=== PATIENT | female | born 1960 | race Caucasian/White ===

== ENCOUNTER 2018-02-10 10:00 | Inpatient (IN) | payer MEDICARE ==
[~2018-02-10 10:00] MED LIST: cefOXitin 2 GM Vial ONE
[2018-02-10] MEDS ORDERED: Celecoxib 200 MG Cap PO ONE (11:30)
[2018-02-10] MEDS ORDERED: Scopolamine 1.5 MG Transdermal Patch TOP SCH (11:30)
[2018-02-10] MEDS ORDERED: Acetaminophen 500 MG Tab PO ONE (11:30)
[2018-02-10] MEDS ORDERED: Gabapentin 300 MG Cap PO ONE (11:30)
[2018-02-10] MEDS: Dextrose 5%-Lactated Ringers 1,000 ML IV SCH ×2 (11:48→20:00)
[2018-02-10] MEDS ORDERED: cefOXitin 2 GM in Sodium Chloride 0.9% 50 ML IV ONE (12:00)
[2018-02-10] MEDS ORDERED: Albuterol/Ipratropium 3.0-0.5 MG/3 ML Neb Soln NEB ONE (12:00)
[2018-02-10] MEDS ORDERED: fentaNYL 250 MCG/5 ML SDV ONE ×2 (13:09→16:15)
[2018-02-10] MEDS ORDERED: Neostigmine Methylsulfate 1 MG/ML 5 ML Syringe ONE (13:12)
[2018-02-10] MEDS ORDERED: Dexamethasone 4 MG/ML SDV ONE (13:12)
[2018-02-10] MEDS ORDERED: Succinylcholine 200 MG/10 ML MDV ONE (13:12)
[2018-02-10] MEDS ORDERED: Propofol 200 MG/20 ML SDV ONE (13:12)
[2018-02-10] MEDS ORDERED: Rocuronium 50 MG/5 ML Vial ONE (13:12)
[2018-02-10] MEDS ORDERED: Ondansetron 4 MG/2 ML SDV ONE (13:12)
[2018-02-10] MEDS ORDERED: Glycopyrrolate 0.2 MG/ML 5 ML MDV ONE (13:12)
[2018-02-10] MEDS ORDERED: Ketamine 500 MG/5 ML MDV IV SCH (13:15)
[2018-02-10] MEDS ORDERED: Lidocaine 2% 100 MG/5 ML Syringe IVPUSH ONE (13:15)
[2018-02-10] MEDS ORDERED: Ropivacaine 58 ML, Dexamethasone 8 MG, EPINEPHrine 0.4 MG, Sodium Chloride 0.9% 19.6 ML NERVRT SCH ×4 (13:15)
[2018-02-10] MEDS ORDERED: Meropenem 500 MG SDV ONE (14:08)
[2018-02-10] MEDS ORDERED: Lactated Ringers 1,000 ML ONE (14:34)
[2018-02-10] MEDS ORDERED: HYDROmorphone/Normal Saline 15 MG/30 ML PCA IV PRN (15:43)
[2018-02-10] MEDS ORDERED: Naloxone 0.4 MG/ML SDV IV PRN (15:47)
[2018-02-10] MEDS ORDERED: MVI, Adult with Vitamin K 10 ML, Thiamine 200 MG in Dextrose 5%-Lactated Ringers 1,000 ML IV SCH ×3 (16:00)
[2018-02-10] MEDS ORDERED: hydrOXYzine HCl 100 MG/2 ML SDV IM ONE (18:15)
[2018-02-10] MEDS ORDERED: methylPREDNISolone Sodium Succinate 40 MG/1 ML SDV IVPUSH ONE (19:04)
[2018-02-10] MEDS: methylPREDNISolone Sodium Succinate 125 MG/2 ML SDV ONE ×2 (19:25→20:35)
[2018-02-10] MEDS ORDERED: methylPREDNISolone Sodium Succinate 125 MG/2 ML SDV IVPUSH ONE (19:30)
[2018-02-10] MEDS: Lidocaine 0.4%/D5W 2 GM/500 ML BAG IV SCH (20:00)
[2018-02-10] MEDS ORDERED: Ondansetron 4 MG/2 ML SDV IV PRN (20:36)
[2018-02-10] MEDS ORDERED: Albuterol/Ipratropium 3.0-0.5 MG/3 ML Neb Soln NEB PRN (20:58)
[2018-02-10] MEDS ORDERED: hydrOXYzine HCl 100 MG/2 ML SDV IM PRN (21:18)
[2018-02-10] MEDS ORDERED: diphenhydrAMINE 50 MG/ML SDV IVPUSH PRN (21:19)
[2018-02-10] MEDS ORDERED: Metoclopramide 10 MG/2 ML SDV IV PRN (21:19)
[2018-02-10] MEDS ORDERED: Labetalol 20 MG/4 ML Syringe IVPUSH PRN (21:24)
[2018-02-10] MEDS ORDERED: MVI, Adult with Vitamin K 10 ML, Thiamine 200 MG, Chromium/Copper/Mang/Zinc 1 ML in Dex... IV SCH ×4 (21:59)
[2018-02-10] MEDS ORDERED: Albuterol/Ipratropium 3.0-0.5 MG/3 ML Neb Soln NEB SCH (22:00)
[2018-02-10] MEDS ORDERED: Acetaminophen Soln 160 MG/5 ML UD Cup PO SCH (22:00)
[2018-02-10] MEDS: Insulin Aspart 100 Units/ML 3 ML Pen SUBCUT PRN (22:05)
[2018-02-10] MEDS: Heparin Sodium 5,000 Units/ML Vial SUBCUT SCH (22:05)
[2018-02-10] MEDS: cefOXitin 2 GM in Sodium Chloride 0.9% 100 ML IV SCH (22:06)
[2018-02-10] MEDS: Gabapentin 250 MG/5 ML Solution ML 470 ML Bottle PO SCH (22:07)
[2018-02-10] MEDS ORDERED: 50% Dextrose in Water 50 ML Syringe IV PRN (22:17)
[2018-02-10] MEDS ORDERED: Glucagon,Human Recombinant 1 MG Vial IM PRN (22:18)
[2018-02-10] MEDS: Acetaminophen Soln 650 MG/20.3 ML UD Cup PO SCH (22:32)
[2018-02-11] MEDS ORDERED: Iohexol 647 MG/ML 50 ML SDV PO PRN (02:51)
[2018-02-11] MEDS: Dextrose 5%-Lactated Ringers 1,000 ML IV SCH (04:24)
[2018-02-11] MEDS: Acetaminophen Soln 650 MG/20.3 ML UD Cup PO SCH ×4 (04:41→21:02)
[2018-02-11] MEDS: cefOXitin 2 GM in Sodium Chloride 0.9% 100 ML IV SCH (04:42)
[2018-02-11] MEDS: Heparin Sodium 5,000 Units/ML Vial SUBCUT SCH (04:42)
[2018-02-11] MEDS: Insulin Aspart 100 Units/ML 3 ML Pen SUBCUT PRN ×3 (04:49→22:15)
[2018-02-11] MEDS: Lidocaine 0.4%/D5W 2 GM/500 ML BAG IV SCH (05:24)
[2018-02-11] MEDS: Albuterol/Ipratropium 3.0-0.5 MG/3 ML Neb Soln NEB SCH ×4 (07:05→21:01)
[2018-02-11] MEDS ORDERED: Albuterol/Ipratropium 3.0-0.5 MG/3 ML Neb Soln NEB PRN (07:38)
[2018-02-11] MEDS ORDERED: Labetalol 20 MG/4 ML Syringe IVPUSH PRN (07:49)
[2018-02-11] MEDS: Gabapentin 250 MG/5 ML Solution ML 470 ML Bottle PO SCH ×3 (08:42→21:01)
[2018-02-11] MEDS: SCOPOLAMINE PATCH CHECK TOP SCH (08:43)
[2018-02-11] MEDS ORDERED: Lactated Ringers 1,000 ML IV SCH (08:45)
[2018-02-11] MEDS ORDERED: Pantoprazole 40 MG Vial IV SCH (09:00)
[2018-02-11] MEDS ORDERED: Celecoxib 200 MG Cap PO SCH (09:00)
[2018-02-11] MEDS ORDERED: methylPREDNISolone Sodium Succinate 40 MG/1 ML SDV IVPUSH SCH (09:00)
[2018-02-11] MEDS ORDERED: cefOXitin 2 GM in Sodium Chloride 0.9% 50 ML IV SCH (10:00)
[2018-02-11] MEDS: Meropenem 500 MG in Sodium Chloride 0.9% 50 ML IV SCH ×3 (10:27→22:21)
[2018-02-11] MEDS ORDERED: Insulin Aspart 100 Units/ML 3 ML Pen SUBCUT ONE (11:15)
[2018-02-11] MEDS: Enoxaparin 40 MG/0.4 ML Syringe SUBCUT SCH ×2 (13:17→23:23)
[2018-02-11] MEDS: HYDROmorphone 2 MG Tab PO PRN ×2 (14:01→18:20)
[2018-02-11] MEDS ORDERED: MVI, Adult with Vitamin K 10 ML, Thiamine 200 MG, Chromium/Copper/Mang/Zinc 1 ML in Dex... IV SCH ×4 (16:00)
[2018-02-11] MEDS ORDERED: MVI, Adult with Vitamin K 10 ML, Thiamine 200 MG, Chromium/Copper/Mang/Zinc 1 ML in Lac... IV SCH ×4 (16:00)
[2018-02-11] MEDS ORDERED: MVI, Adult with Vitamin K 10 ML, Thiamine 200 MG, Chromium/Copper/Mang/Selen/Zn 1 ML in... IV SCH ×4 (16:00)
[2018-02-12] MEDS: HYDROmorphone 2 MG Tab PO PRN ×5 (02:53→21:17)
[2018-02-12] MEDS: Acetaminophen Soln 650 MG/20.3 ML UD Cup PO SCH ×4 (03:00→21:19)
[2018-02-12] MEDS: Insulin Aspart 100 Units/ML 3 ML Pen SUBCUT PRN ×4 (04:30→21:21)
[2018-02-12] MEDS: Albuterol/Ipratropium 3.0-0.5 MG/3 ML Neb Soln NEB SCH ×4 (07:04→21:19)
[2018-02-12] MEDS: Pantoprazole 40 MG Delayed-Release Granules 1 Packet PO SCH (07:51)
[2018-02-12] MEDS: SCOPOLAMINE PATCH CHECK TOP SCH (08:07)
[2018-02-12] MEDS: Gabapentin 250 MG/5 ML Solution ML 470 ML Bottle PO SCH ×3 (08:41→21:38)
[2018-02-12] MEDS ORDERED: predniSONE 1 MG Tab PO SCH (09:00)
[2018-02-12] MEDS ORDERED: Magnesium Hydroxide 400 MG/5 ML Susp 30 ML Cup PO ONE (09:00)
[2018-02-12] MEDS ORDERED: Cyanocobalamin (Vitamin B12) 1,000 MCG/ML SDV IM ONE (09:00)
[2018-02-12] MEDS: Enoxaparin 40 MG/0.4 ML Syringe SUBCUT SCH ×2 (12:04→23:22)
[2018-02-13] MEDS: HYDROmorphone 2 MG Tab PO PRN ×4 (04:01→19:56)
[2018-02-13] MEDS: Acetaminophen Soln 650 MG/20.3 ML UD Cup PO SCH ×4 (04:01→21:19)
[2018-02-13] MEDS: Albuterol/Ipratropium 3.0-0.5 MG/3 ML Neb Soln NEB SCH ×4 (07:20→20:00)
--- NOTE | 2018-02-13 07:47 | PN ---
DATE OF SERVICE: 02/11/2018 The patient has been afebrile with stable vital signs. No major problems were noted overnight. Urine output has been good. Blood sugars have been somewhat high. I suspect she is a previously undiagnosed diabetic and will provide coverage today. Will back down on the IV rate somewhat, but only to 125 mL an hour, as her creatinine did move from 1.0 to 1.5. We will recheck that tomorrow. We will change her IV to plain LR as well and switch over to prednisone starting tomorrow for steroid coverage, will go up to a step 2 diet with no solids. X-ray looks good with rapid emptying out of the esophagus into the small bowel. Jarett Small MD /[id number]
[2018-02-13] MEDS: SCOPOLAMINE PATCH CHECK TOP SCH (08:21)
--- NOTE | 2018-02-13 08:55 | CR ---
UGI wo KUB HISTORY: S/P RNY FINDINGS: After administration of oral contrast, upright views were obtained. Post operative changes gastric bypass. Surgical drains in place. No evidence for leak. Contrast passes freely into proximal small bowel loops. There is some patchy airspace disease in the left lower lobe. This may represent a telectasis or infiltrate. IMPRESSION: No evidence for leak or obstruction. Left lower lobe density may represent atelectasis or infiltrate
[2018-02-13] MEDS ORDERED: predniSONE 1 MG Tab PO SCH (09:00)
--- NOTE | 2018-02-13 09:05 | OR ---
DATE OF PROCEDURE: 02/10/2018 PREOPERATIVE DIAGNOSIS: Failed previously placed vertical-banded gastroplasty. POSTOPERATIVE DIAGNOSES: 1. Failed previous vertical-banded gastroplasty with florid inflammatory response involving proximal stomach and distal esophagus, requiring esophagogastrectomy for revision. 2. Intraperitoneal mesh adherent to small bowel. 3. Multifocal recurrent incarcerated incisional hernia. 4. Marked hepatomegaly. OPERATIVE PROCEDURES: Exploratory laparotomy with lysis of adhesions and: 1. Esophagogastrectomy with Stefan-en-Y esophagojejunostomy (56484). 2. Removal of portion of intraperitoneal mesh (47774). 3. Repair of recurrent incarcerated multifocal incisional hernia ([id number]). 4. Meir-Cut needle liver biopsy ([id number]). ANESTHESIA: General. NIB FINISHER: WALT Yanes. INDICATION FOR PROCEDURE: This is a 57-year-old presenting with a failed vertical-banded gastroplasty with the patient once again becoming morbidly obese with progressively worsening comorbidities. The plan is to proceed with an open laparotomy and conversion of the vertical-banded gastroplasty status to a Stefan-en-Y gastric bypass. Potential risks including bleeding, infection, leaks from various GI tract closures, problems with bowel obstruction over time, as well as the possibility of cardiopulmonary, septic, or hemorrhagic complications leading to were discussed, and the patient wishes to proceed. DETAILS OF PROCEDURE: The patient was taken to the operating room and placed in a supine position. After general endotracheal anesthesia was induced, a Dunn catheter was inserted and bilateral subcostal transversus abdominis plane blocks were placed with ultrasound guidance and injection with the standard solution bilaterally. An upper midline incision was then made and carried down through the skin and subcutaneous tissue and into the peritoneal cavity, this was from the xiphoid to the umbilicus. In the lower half of the incision, some previously placed mesh was encountered. This was divided. A portion of this mesh was adherent to some small bowel. After removal from the small bowel, a minor area of deserosalization at that site was closed with a 3-0 Vicryl seromuscular stitch. Otherwise, quite a bit in the way of omental adhesions to the mesh were taken down with a combination of cautery and stapler techniques. In part of the incision above the mesh, the patient was noted to have multifocal recurrent incarcerated incisional hernias. This involved 3 different sites of herniation along the midline incision. The hernia contents were sequentially excised and as a group sent for pathologic review. Attention was then taken to the area around the previous gastroplasty. The patient was noted to have extremely dense inflammatory response involving the area around the gastroplasty. This extended up to the uppermost stomach and somewhat onto the esophagus. The safe plane of proximal dissection appeared to be in the uppermost abdominal esophagus, essentially flush with the diaphragm. This was actually pulled down somewhat so that the [place] location of the point of division would be perhaps 1 cm or so above the level of the diaphragm. At any rate, that area, after being dissected free, was divided with ADRIENNE black loads. The stomach below the gastroplasty was then divided transversely with ADRIENNE purple loads, along with black loads. The omentum and short gastric vessels were then taken down with series of mesenteric loads, and the remaining attachments to the area of the gastroplasty involved stomach were then divided posteriorly with ADRIENNE loads as well, as was the distal esophagus attached to that. The esophagogastrectomy specimen was then delivered from the field. At this point, the Stefan limb was then fashioned. The small bowel was identified at the ligament of Treitz and traced down 100 cm distal to that point, where it was divided with a ADRIENNE stapler. The small bowel was then traced out an additional 150 cm, where a [id number] enteroenterostomy was accomplished with internal firing of Endo-ADRIENNE 60-mm stapler. The common opening was closed transversely with the same stapler, angles anastomosed, and mesenteric defect approximated with some 0 Ethibond stitch along with fibrin sealant. A retrogastric retrocolic tunnel was then created through the transverse mesocolon, and the Stefan limb easily then came up to the area of the divided esophagus. The anvil of a 25-mm EEA stapler was attached to Cloud sump type tube. The latter was brought down through the mouth and taken out through a small opening in the divided end of the esophagus, allowing the anvil likewise to be pulled down to the divided esophagus. The divided end of the Stefan limb was then opened and main body of the EEA stapler was passed several centimeters in the lumen of the small bowel, brought up to the anvil and united with it, thus creating the esophagojejunostomy. Upon removal of the stapler, double donuts of mucosa were noted within it. The small bowel was closed off with a vascular staple line. Esophagojejunostomy was then reinforced with some 3-0 Vicryl seromuscular stitch and fibrin sealant. At this point, no further problems were noted. A single Pete-Carl drain was taken out through the left subcostal area and positioned against the esophagojejunostomy. The point where the small bowel passed through the transverse mesocolon was affixed with some 3-0 Vicryl stitch and, at that point, the midline fascia was approximated with #2 Vicryl stitch. The subcutaneous tissue was closed with 2 layers of 3-0 Vicryl stitch, and the skin with noble. The hernias along the midline fascia were closed with #2 Vicryl stitch. The portion of the mesh that had been divided had been cordoned off with meropenem-containing sponges and, at that point, had been opened and gloves changed. The mesh was then approximated with a running 0 Prolene stitch. Over this, the fascia was closed with the 2-0 Vicryl stitch as well and, as noted above, the subcutaneous tissue was approximated with 2 layers of 3-0 Vicryl stitch deep and the skin with noble. One additional item in this case was that the liver was grossly fatty infiltrated and quite enlarged, and a Meir-Cut needle biopsy was obtained from the left lobe of the liver prior to closure, and that area was cauterized for hemostasis. There were no evident complications. The patient was taken to the recovery room in a satisfactory condition. Jarett Small MD /[id number]
--- NOTE | 2018-02-13 09:08 | PCM.PN ---
- General Info Date of Service: 02/13/18 Admission Dx/Problem (Free Text): Failed previous vertical band gastroplasy. Subjective Update: Patient is POD #3 after esophagogastectomy and RNY esophagojejunostomy. She is stable and afebrile with no major problems over night. She is up, ambulating and pain is controlled on current regimen. Due to high pre and post operation blood sugars a A1C will be checked today and a early morning babysitter will come in and talk with the patient today. Functional Status: Reports: Pain Controlled, Tolerating Diet, Ambulating, Urinating, New Symptoms - Review of Systems General: Reports: No Symptoms HEENT: Reports: No Symptoms Pulmonary: Reports: No Symptoms Cardiovascular: Reports: No Symptoms Gastrointestinal: Reports: No Symptoms Genitourinary: Reports: No Symptoms Musculoskeletal: Reports: No Symptoms Skin: Reports: No Symptoms Neurological: Reports: No Symptoms Psychiatric: Reports: No Symptoms Systems Review Comment:: Remainder of ROS is negative for any pertinent positives or negatives. - Patient Data Vitals - Most Recent: Last Vital Signs Temp 98.7 F 02/13/18 07:00 Pulse 88 02/13/18 07:21 Resp 18 02/13/18 07:00 BP 115/62 02/13/18 07:00 Pulse Ox 87 L 02/13/18 07:00 Weight - Most Recent: 257 lb 3.2 oz I&O - Last 24 Hours: Intake & Output 02/12/18 02/13/18 02/13/18 22:59 06:59 14:59 Intake Total 1300 240 Output Total 420 300 340 Balance 880 -60 -340 Lab Results Last 24 Hours: Laboratory Results - last 24 hr 02/11/18 Range/Units 05:30 Hemoglobin A1c 8.8 H (4.5-6.2) % Med Orders - Current: Current Medications Acetaminophen (Tylenol) 650 mg PO Q6H [facility] Last Admin: 02/13/18 04:01 Dose: 650 mg Albuterol/Ipratropium (Duoneb 3.0-0.5 Mg/3 Ml) 3 ml NEB QIDRT [facility] Last Admin: 02/13/18 07:20 Dose: 3 ml Albuterol/Ipratropium (Duoneb 3.0-0.5 Mg/3 Ml) 3 ml NEB ASDIRECTED PRN PRN Reason: Shortness of Breath Amitriptyline HCl (Elavil) 100 mg PO BEDTIME [facility] Last Admin: 02/12/18 21:21 Dose: 100 mg Dextrose/Water (Dextrose 50% In Water) 50 ml IV ASDIRECTED PRN PRN Reason: Hypoglycemia Diphenhydramine HCl (Benadryl) 25 - 50 mg IVPUSH Q4H PRN PRN Reason: Itching Enoxaparin Sodium (Lovenox) 40 mg SUBCUT Q12H [facility] Last Admin: 02/12/18 23:22 Dose: 40 mg Gabapentin (Neurontin) 300 mg PO TID [facility] Last Admin: 02/12/18 21:38 Dose: 300 mg Glucagon (Glucagen) 1 mg IM ASDIRECTED PRN PRN Reason: Hypoglycemia Hydromorphone HCl (Dilaudid) 2 - 4 mg PO Q4H PRN PRN Reason: PAIN Last Admin: 02/13/18 08:14 Dose: 4 mg Hydroxyzine HCl (Vistaril) 75 - 100 mg IM Q4H PRN PRN Reason: Pain Last Admin: 02/12/18 02:53 Dose: 100 mg Insulin Aspart (Novolog) 0 unit SUBCUT Q6H PRN; Protocol PRN Reason: PER CORRECTIONAL DOSING Last Admin: 02/12/18 21:21 Dose: 5 units Labetalol HCl (Normodyne) 5 - 15 mg IVPUSH Q1H PRN; Protocol PRN Reason: Hypertension Magnesium Hydroxide (Milk Of Magnesia) 30 ml PO ASDIRECTED PRN PRN Reason: CONSTIPATION Metoclopramide HCl (Reglan) 10 mg IV Q6H PRN PRN Reason: Nausea Miscellaneous Information (Remove Patch) 1 ea TRDERM ONETIME ONE Stop: 02/13/18 10:01 Ondansetron HCl (Zofran) 4 mg IV Q4H PRN PRN Reason: Nausea Pantoprazole Sodium (Protonix Granules) 40 mg PO ACBREAKFAST [facility] Last Admin: 02/12/18 07:51 Dose: 40 mg Prednisone (Prednisone) 1.5 mg PO DAILY [facility] Discontinued Medications Acetaminophen (Tylenol Extra Strength) 1,000 mg PO ONETIME ONE Stop: 02/10/18 11:31 Last Admin: 02/10/18 11:45 Dose: 1,000 mg Acetaminophen (Tylenol Solution) 650 mg PO Q6H [facility] Last Admin: 02/10/18 22:10 Dose: 650 mg Acetaminophen (Tylenol) 650 mg PO Q6H [facility] Last Admin: 02/11/18 04:41 Dose: 650 mg Albuterol/Ipratropium (Duoneb 3.0-0.5 Mg/3 Ml) 3 ml NEB ONETIME ONE Stop: 02/10/18 12:01 Last Admin: 02/10/18 11:46 Dose: 3 ml Albuterol/Ipratropium (Duoneb 3.0-0.5 Mg/3 Ml) 3 ml NEB QID [facility] Last Admin: 02/10/18 22:06 Dose: 3 ml Albuterol/Ipratropium (Duoneb 3.0-0.5 Mg/3 Ml) 3 ml NEB Q4H PRN PRN Reason: Cough Cefoxitin Sodium (Mefoxin) Confirm Administered Dose 2 gm .ROUTE .STK-MED ONE Stop: 02/10/18 06:50 Celecoxib (Celebrex) 200 mg PO ONETIME ONE Stop: 02/10/18 11:31 Last Admin: 02/10/18 11:45 Dose: Not Given Celecoxib (Celebrex) 200 mg PO DAILY [facility] Last Admin: 02/11/18 08:42 Dose: Not Given Ropivacaine 58 ml/Dexamethasone 8 mg/Epinephrine HCl 0.4 mg/ Sodium Chloride 19.6 ml 0 ml NERVRT ASDIRECTED [facility] Last Admin: 02/10/18 15:21 Dose: 80 syringe Cyanocobalamin (Vitamin B12) 1,000 mcg IM ONETIME ONE Stop: 02/12/18 09:01 Last Admin: 02/12/18 08:41 Dose: 1,000 mcg Dexamethasone (Dexamethasone) Confirm Administered Dose 4 mg .ROUTE .STK-MED ONE Stop: 02/10/18 13:13 Fentanyl (Sublimaze) Confirm Administered Dose 250 mcg .ROUTE .STK-MED ONE Stop: 02/10/18 13:10 Fentanyl (Sublimaze) Confirm Administered Dose 250 mcg .ROUTE .STK-MED ONE Stop: 02/10/18 16:16 Gabapentin (Neurontin) 300 mg PO ONETIME ONE Stop: 02/10/18 11:31 Last Admin: 02/10/18 11:45 Dose: 300 mg Glycopyrrolate (Robinul) Confirm Administered Dose 1 mg .ROUTE .STK-MED ONE Stop: 02/10/18 13:13 Heparin Sodium (Porcine) (Heparin Sodium) 5,000 units SUBCUT Q8H [facility] Last Admin: 02/11/18 04:42 Dose: 5,000 units Hydromorphone HCl (Dilaudid Pen Maker 15 Mg In Ns 30 Ml) 0 mg IV ASDIRECTED PRN; Protocol PRN Reason: Pain Last Admin: 02/10/18 15:59 Dose: 0.3 mg Hydroxyzine HCl (Vistaril) 100 mg IM ONETIME ONE Stop: 02/10/18 18:16 Last Admin: 02/10/18 20:17 Dose: Not Given Cefoxitin Sodium 2 gm/ Sodium (Chloride) 50 mls @ 100 mls/hr IV ONETIME ONE Stop: 02/10/18 12:29 Last Admin: 02/10/18 15:10 Dose: 100 mls/hr Dextrose/Lactated Ringer's (Dextrose 5%-Lactated Ringers) 1,000 mls @ 175 mls/ hr IV ASDIRECTED [facility] Last Admin: 02/11/18 04:24 Dose: 175 mls/hr Lidocaine HCl/Dextrose (Lidocaine 2 Gm/D5w 500 Ml) 2 gm in 500 mls @ 30 mls/hr IV .[id number] [facility] Stop: 02/11/18 05:54 Last Admin: 02/11/18 05:24 Dose: Not Given Ketamine HCl 100 mg/ Sodium (Chloride) 100 mls @ 17.7 mls/hr IV ASDIRECTED DASH Insulin Human Regular 100 unit (/ Sodium Chloride) 100 mls @ 0 mls/hr IV TITRATE DASH; Protocol Lactated Ringer's (Ringers, Lactated) Confirm Administered Dose 1,000 mls @ as directed .ROUTE .STK-MED ONE Stop: 02/10/18 14:35 Multivitamins/Minerals 10 ml/Thiamine HCl 200 mg/ Dextrose/Lactated Ringer's 1, 012 mls @ 175 mls/hr IV DAILY [facility] Last Admin: 02/11/18 04:24 Dose: Not Given Cefoxitin Sodium 2 gm/ Sodium (Chloride) 100 mls @ 100 mls/hr IV Q6HR DASH Stop: 02/12/18 16:59 Last Admin: 02/11/18 04:42 Dose: 100 mls/hr Multivitamins/Minerals 10 ml/Thiamine HCl 200 mg/ Chromium/Copper/Manganese/ Zinc 1 ml/Dextrose/Lactated Ringer's 1,013 mls @ 175.175 mls/hr IV DAILY@1600 DASH Cefoxitin Sodium 2 gm/ Sodium (Chloride) 50 mls @ 100 mls/hr IV Q6HR [facility] Stop: 02/12/18 16:29 Lactated Ringer's (Ringers, Lactated) 1,000 mls @ 125 mls/hr IV ASDIRECTED [facility] Last Admin: 02/12/18 00:55 Dose: 125 mls/hr Meropenem 500 mg/ Sodium (Chloride) 50 mls @ 100 mls/hr IV Q6H [facility] Stop: 02/11/18 22:59 Last Admin: 02/11/18 22:21 Dose: 100 mls/hr Multivitamins/Minerals 10 ml/Thiamine HCl 200 mg/ Chromium/Copper/Manganese/ Seleni/Zn 1 ml/ Lactated Ringer's 1,013 mls @ 125 mls/hr IV DAILY@1600 DASH Last Admin: 02/11/18 16:01 Dose: 125 mls/hr Insulin Aspart (Novolog) 0 unit SUBCUT Q6H PRN; Protocol PRN Reason: Hyperglycemia Last Admin: 02/11/18 04:49 Dose: 7 units Insulin Aspart (Novolog) 16 unit SUBCUT ONETIME ONE Stop: 02/11/18 11:16 Last Admin: 02/11/18 11:32 Dose: 16 units Iohexol (Omnipaque-300) 50 ml PO . DIRECTED PRN PRN Reason: RADIOLOGY EXAM Stop: 02/12/18 02:52 Last Admin: 02/11/18 04:00 Dose: 50 ml Ketamine HCl (Ketalar) 30 mg IV ASDIRECTED [facility] Labetalol HCl (Normodyne) 5 - 15 mg IVPUSH Q4H PRN; Protocol PRN Reason: Hypertension Lidocaine HCl (Xylocaine 2%) 120 mg IVPUSH ONETIME ONE Stop: 02/10/18 13:16 Last Admin: 02/10/18 20:36 Dose: Not Given Magnesium Hydroxide (Milk Of Magnesia) 30 ml PO ONETIME ONE Stop: 02/12/18 09:01 Last Admin: 02/12/18 10:05 Dose: 30 ml Meropenem (Merrem) Confirm Administered Dose 500 mg .ROUTE .STK-MED ONE Stop: 02/10/18 14:09 Last Admin: 02/10/18 16:27 Dose: 500 mg Methylprednisolone Sodium Succinate (Solu-Medrol) 40 mg IVPUSH ONETIME ONE Stop: 02/10/18 19:05 Last Admin: 02/10/18 19:26 Dose: Not Given Methylprednisolone Sodium Succinate (Solu-Medrol) Confirm Administered Dose 125 mg .ROUTE .STK-MED ONE Stop: 02/10/18 19:07 Last Admin: 02/10/18 20:35 Dose: Not Given Methylprednisolone Sodium Succinate (Solu-Medrol) 40 mg IVPUSH ONETIME ONE Stop: 02/10/18 19:31 Last Admin: 02/10/18 19:25 Dose: 40 mg Methylprednisolone Sodium Succinate (Solu-Medrol) 40 mg IVPUSH Q12H [facility] Stop: 02/11/18 10:00 Last Admin: 02/11/18 08:42 Dose: 40 mg Naloxone HCl (Narcan) 0.1 mg IV ASDIRECTED PRN PRN Reason: decreased respiratory rate Neostigmine Methylsulfate (Neostigmine) Confirm Administered Dose 5 mg .ROUTE .STK-MED ONE Stop: 02/10/18 13:13 Scopolamine Patch (Check) 1 each TOP DAILY [facility] Stop: 02/13/18 09:01 Last Admin: 02/13/18 08:21 Dose: Not Given Ondansetron HCl (Zofran) Confirm Administered Dose 4 mg .ROUTE .STK-MED ONE Stop: 02/10/18 13:13 Pantoprazole Sodium (Protonix Iv) 40 mg IV DAILY [facility] Last Admin: 02/11/18 08:42 Dose: 40 mg Prednisone (Prednisone) 4 mg PO DAILY [facility] Stop: 02/12/18 10:00 Last Admin: 02/12/18 08:41 Dose: 4 mg Propofol (Diprivan 20 Ml) Confirm Administered Dose 200 mg .ROUTE .STK-MED ONE Stop: 02/10/18 13:13 Rocuronium [place] (Zemuron) Confirm Administered Dose 50 mg .ROUTE .STK-MED ONE Stop: 02/10/18 13:13 Scopolamine (Transderm-Scop) 1.5 mg TOP Q72H [facility] Stop: 02/12/18 11:31 Last Admin: 02/10/18 11:48 Dose: 1.5 mg Succinylcholine Chloride (Quelicin) Confirm Administered Dose 200 mg .ROUTE .STK -MED ONE Stop: 02/10/18 13:13 - Exam General: Alert, Oriented HEENT: Pupils Equal, Mucous Membr. Moist/[place] Neck: Supple Lungs: Normal Respiratory Effort, Wheezing (Inspiratory wheeze in the upper left lobe.) Cardiovascular: Regular Rate, Regular Rhythm Extremities: Normal Range of Motion Skin: Warm, Dry, Intact Neurological: No New Focal Deficit Psy/Mental Status: Alert, Normal Affect, Normal Mood - Problem List Review Problem List Initiated/Reviewed/Updated: Yes - Assessment Assessment:: Status post Esophagogastrectomy and RNY Esophagojejunostomy. - Plan Plan:: 1. Step two diet without cereal for two weeks 2. Bonded Strand Operator to come today 3. Order and evaluate for A1C 4. Prednisone 1.5 mg po qd 5. Remove and replace scopolamine patch 6. Remove drain 7. Remove dressing 8. Seat Covers Trimmer Consult 9. Evaluate prn or in am
[2018-02-13] MEDS: Gabapentin 250 MG/5 ML Solution ML 470 ML Bottle PO SCH ×3 (09:10→21:18)
[2018-02-13] MEDS: Pantoprazole 40 MG Delayed-Release Granules 1 Packet PO SCH (09:11)
--- NOTE | 2018-02-13 09:22 | PN ---
DATE OF SERVICE: 02/12/2018 The patient has been afebrile with stable vital signs. Oral intake has been fairly good. We will back down on the prednisone to baseline tomorrow. Blood sugars are coming down somewhat. This may continue to come down as the steroids are weaned down. We will not start any specific blood sugar management other than coverage with NovoLog at this point. Otherwise, she will likely be ready for discharge home tomorrow. We will have Dietary see the patient regarding step-2 diet with no solids prior to discharge. Jarett Small MD Job #: [id number]
[2018-02-13] MEDS: Magnesium Hydroxide 400 MG/5 ML Susp 30 ML Cup PO PRN (09:26)
[2018-02-13] MEDS: Insulin Aspart 100 Units/ML 3 ML Pen SUBCUT PRN ×3 (09:33→16:19)
[2018-02-13] MEDS: Enoxaparin 40 MG/0.4 ML Syringe SUBCUT SCH ×2 (12:24→23:22)
[2018-02-13] MEDS: metFORMIN 500 MG/5 ML PO SCH (16:09)
[2018-02-13] MEDS ORDERED: Bisacodyl 5 MG Tab PO ONE ×2 (17:30→21:00)
[2018-02-14] MEDS ORDERED: Benzocaine/Cetylpyridinium/Menthol Lozenge MUCMEM PRN (04:10)
[2018-02-14] MEDS: Acetaminophen Soln 650 MG/20.3 ML UD Cup PO SCH ×2 (04:22→09:03)
[2018-02-14] MEDS: Albuterol/Ipratropium 3.0-0.5 MG/3 ML Neb Soln NEB SCH (07:28)
[2018-02-14] MEDS: Pantoprazole 40 MG Delayed-Release Granules 1 Packet PO SCH (07:39)
[2018-02-14] MEDS: metFORMIN 500 MG/5 ML PO SCH (07:40)
[2018-02-14] MEDS ORDERED: Magnesium Hydroxide 400 MG/5 ML Susp 30 ML Cup PO ONE (09:00)
[2018-02-14] MEDS ORDERED: predniSONE 5 MG Tab PO ONE (09:00)
[2018-02-14] MEDS ORDERED: Bisacodyl 5 MG Tab PO ONE (09:00)
[2018-02-14] MEDS: Magnesium Hydroxide 400 MG/5 ML Susp 30 ML Cup PO PRN (09:02)
[2018-02-14] MEDS: Gabapentin 250 MG/5 ML Solution ML 470 ML Bottle PO SCH (09:03)
--- NOTE | 2018-02-14 10:37 | DISCH ---
FINAL DIAGNOSES: 1. Failed previously placed vertical-banded gastroplasty. 2. Florid inflammatory response involving the proximal stomach and distal esophagus requiring esophagogastrectomy for revision of gastroplasty. 3. Intraperitoneal mesh adherent to small bowel. 4. Multifocal recurrent incarcerated incisional hernia. 5. Marked hepatomegaly. 6. New diagnosis of type 2 diabetes mellitus. 7. History of Sjogren's syndrome. 8. Bariatric surgery status with ongoing morbid obesity. OPERATIVE PROCEDURES: This was done on 02/10, exploratory laparotomy with lysis of adhesions and; 1. Esophagogastrectomy with Stefan-en-Y esophagojejunostomy. 2. Removal of portion of the intraperitoneal mesh. 3. Repair of recurrent incarcerated multifocal incisional hernia. 4. Meir-Cut needle liver biopsy. HOSPITAL COURSE: This is a 57-year-old status post vertical-banded gastroplasty in the early , who was having persistent problems and recurrent obesity associated with worsening comorbidities. After preoperative evaluation and discussion, she wished to be converted to a Stefan-en-Y gastric bypass. On the date of admission, the patient underwent surgical exploration. She had a florid inflammatory response in the area of the distal esophagus and upper stomach related to the gastroplasty requiring esophagogastrectomy for removal of those areas and subsequent esophagojejunostomy. Postoperatively, the patient was noted to have some increasingly high blood sugars. A hemoglobin A1c was obtained, which was 8.8 confirming the new diagnosis of type 2 diabetes mellitus. We thought that the blood sugars would likely to come down with the procedure as performed as this was relatively nondiabetic. The patient's blood sugars remained relatively high, and the patient was started on metformin 1000 mg b.i.d. prior to discharge with improvement of blood sugars at that time. The blood sugar elevation may be related to the persistent use of steroids. Otherwise, the patient has done well and tolerating liquid diet. She will be continued on a liquid diet for the next roughly 2 weeks. DISCHARGE MEDICATIONS: Include those prior to discharge, other than we will hold the vitamins and supplements until the first appointment after being sent home additionally with Dilaudid 2 to 4 mg p.o. q.4 hours p.r.n. pain, #50; and metformin 1000 mg p.o. b.i.d., #60, with refill x5. DISCHARGE INSTRUCTIONS: She will be instructed to measure her blood sugars 4 times a day and bring a log of the blood sugars to her first appointment, which will be with Shanice Abad at [facility] next 02/20/2018.
== END 2018-02-14 09:50 | disposition home or self-care (01) | DRG 327 ==
LOC: EDSTATUS 10:00 → JP.SDSSCHI 11:25 → JP.SDS 11:27 → JP.2SS 19:55
PROVIDERS: ADMIT Surgery; ATTEND Surgery
PROC: 0D130ZA Bypass Lower Esophagus to Jejunum, Open Approach (ICD-10-PCS; principal; 2018-02-10)
PROC: 0DNU0ZZ Release Omentum, Open Approach (ICD-10-PCS; 2018-02-10)
PROC: 0DT Gastrointestinal System, Resection (ICD-10-PCS; 2018-02-10)
PROC: 0DN80ZZ Release Small Intestine, Open Approach (ICD-10-PCS; 2018-02-10)
PROC: 0WQF0ZZ Repair Abdominal Wall, Open Approach (ICD-10-PCS; 2018-02-10)
PROC: 0DB60ZZ Excision of Stomach, Open Approach (ICD-10-PCS; 2018-02-10)
PROC: 0FB20ZX Excision of Left Lobe Liver, Open Approach, Diagnostic (ICD-10-PCS; 2018-02-10)
PROC: 0WPF0JZ Removal of Synthetic Substitute from Abdominal Wall, Open Approach (ICD-10-PCS; 2018-02-10)
DX: K95.89 Other complications of other bariatric procedure (principal); K43.0 Incisional hernia with obstruction, without gangrene; R16.0 Hepatomegaly, not elsewhere classified; E66.01 Morbid (severe) obesity due to excess calories; Y83.8 Other surgical procedures as the cause of abnormal reaction of the patient, or of later complication, without mention of misadventure at the time of the procedure; Z68.39 Body mass index [BMI] 39.0-39.9, adult; Z98.84 Bariatric surgery status; K66.0 Peritoneal adhesions (postprocedural) (postinfection); K76.0 Fatty (change of) liver, not elsewhere classified; K91.81 Other intraoperative complications of digestive system; E11.9 Type 2 diabetes mellitus without complications; L40.50 Arthropathic psoriasis, unspecified; Z79.891 Long term (current) use of opiate analgesic; Z87.01 Personal history of pneumonia (recurrent); Z91.040 Latex allergy status; Z88.5 Allergy status to narcotic agent; Z88.0 Allergy status to penicillin; Z88.8 Allergy status to other drugs, medicaments and biological substances; Z79.84 Long term (current) use of oral hypoglycemic drugs; K20.8 Other esophagitis; K29.60 Other gastritis without bleeding
CPT/HCPCS: 36415; 74240; 74240-26; 80053; 82962; 83036; 83735; 83880; 84100; 85025; 85027; 86850; 86900; 86901; 88302; 88304; 88305; 88307; 88309; 88313; 94640; 94762; A9270-GY; C9113; J0171; J0330; J0694; J1100; J1170; J1644; J1650; J2001; J2185; J2405; J2704; J2710; J2795; J2920; J2930; J3010; J3410; J3411; J3420; J7030; J7042; J7050; J7120; J7620; Q9967